=== PATIENT | female | born 1950 | race Caucasian/White ===

== ENCOUNTER → 2022-02-13 | Outpatient (CLI) | payer OTHER ==
[2022-02-18 15:24] LABS: Performing Lab SYMBIODX; Test Name FLOW CYT
== END | disposition home or self-care (01) ==
LOC: PLD 15:20 → LAB SHORT 15:20
PROVIDERS: Dermatology
DX: K12.30 Oral mucositis (ulcerative), unspecified (principal)
CPT/HCPCS: 88305; 88312

== ENCOUNTER → 2023-01-15 | Outpatient (CLI) | payer OTHER | LOC: PLD 12:45 → LAB SHORT 12:45 | DX: D48.5 Neoplasm of uncertain behavior of skin (principal) | CPT/HCPCS: 88305; 88312; 88313 ==